=== PATIENT | male | born 1985 | race Caucasian/White ===

== ENCOUNTER 2019-06-05 22:42 | Emergency (ER) | payer MEDICAID ==
[~2019-06-05] VITALS: Ht 177.8 cm; Wt 72.7 kg
[2019-06-05 22:43] VITALS: BP 110/69
--- NOTE | 2019-06-05 23:08 | NUR ---
ice pack to let knee and right ankle
[2019-06-05] MEDS ORDERED: DICL50TA8 PO (23:38)
[2019-06-05] MEDS ORDERED: HYDROcodone/acetaminophen 5mg/325mg tablet PO ONE (23:40)
--- NOTE | 2019-06-06 01:02 | NUR ---
PT NOW WITH SPLINT IN PLACE TO RIGHT LOWER LEG. CRUTCHS ALSO PROVIDED.
== END 2019-06-06 01:40 | disposition home or self-care (01) ==
LOC: ER 22:42
DX: S82.51XA Displaced fracture of medial malleolus of right tibia, initial encounter for closed fracture (principal); M25.562 Pain in left knee; Z79.899 Other long term (current) drug therapy; W11.XXXA Fall on and from ladder, initial encounter; Y93.89 Activity, other specified; Y92.89 Other specified places as the place of occurrence of the external cause; Y99.8 Other external cause status
CPT/HCPCS: 29515; 73564; 73610; 99283; 99284